=== PATIENT | male | born 1970 | race American Indian/Alaskan Native ===

== ENCOUNTER 2021-08-21 23:55 | Emergency (ER) | payer MEDICARE ==
[2021-08-22 00:24] VITALS: BP 124/79
--- NOTE | 2021-08-22 02:26 | Emergency Department Report ---
ED General Adult HPI - General Chief complaint: Chest Pain Stated complaint: CHEST PAINS Time Seen by Provider: 08/22/21 00:41 Source: patient Mode of arrival: Ambulatory Limitations: No Limitations - History of Present Illness Initial comments: Patient is 51 years old male with history of schizophrenia. Patient also reported that he has history of congestive heart failure. Patient is familiar to me and to this ER. Patient was seen here yesterday for different complaint. Patient stated that he has chest pain but he does not want explore more. P atient sleeping comfortably in no distress. Patient denied any shortness of breath. Patient denied any fever or chills. ED Review of Systems ROS: Stated complaint: CHEST PAINS Other details as noted in HPI Comment: All other systems reviewed and negative Constitutional: denies: chills, fever Respiratory: denies: cough, shortness of breath, SOB with exertion Cardiovascular: chest pain. denies: palpitations, dyspnea on exertion Gastrointestinal: denies: abdominal pain, nausea, vomiting Musculoskeletal: denies: back pain Neurological: denies: headache, weakness, numbness, paresthesias, confusion ED Past Medical Hx - Past Medical History Previous Medical History?: Yes Additional medical history: Chronic ER pt - Surgical History Past Surgical History?: No - Social History Smoking Status: Never Smoker Substance Use Type: None ED Physical Exam - General Limitations: No Limitations General appearance: alert, in no apparent distress - Head Head exam: Present: atraumatic, normocephalic, normal inspection - Eye Eye exam: Present: normal appearance - ENT ENT exam: Present: normal exam, normal orophraynx, mucous membranes moist - Neck Neck exam: Present: normal inspection, full ROM. Absent: tenderness, meningismus - Respiratory Respiratory exam: Present: normal lung sounds bilaterally - Cardiovascular Cardiovascular Exam: Present: regular rate, normal rhythm, normal heart sounds - GI/Abdominal GI/Abdominal exam: Present: soft, normal bowel sounds. Absent: distended, tenderness, guarding, rebound, rigid, organomegaly, mass, bruit, pulsatile mass, hernia - Extremities Exam Extremities exam: Present: normal inspection, full ROM, normal capillary refill. Absent: tenderness - Back Exam Back exam: Present: normal inspection, full ROM. Absent: CVA tenderness (R), CVA tenderness (L) - Neurological Exam Neurological exam: Present: alert, oriented X3, CN II-XII intact, normal gait - Psychiatric Psychiatric exam: Present: normal mood. Absent: suicidal ideation - Skin Skin exam: Present: warm, intact, normal color ED Course Vital Signs 08/22/21 00:23 Temperature 98.4 F Pulse Rate 81 Respiratory 22 Rate Blood Pressure 124/79 O2 Sat by Pulse 94 Oximetry ED Medical Decision Making - EKG Data -: EKG Interpreted by Me EKG shows normal: sinus rhythm Rate: normal - EKG Data Interpretation: no acute changes - Medical Decision Making Patient is 51 years old male with history of schizophrenia. Patient also reported that he has history of congestive heart failure. Patient is familiar to me and to this ER. Patient was seen here yesterday for different complaint. Patient stated that he has chest pain but he does not want explore more. Patient sleeping comfortably in no distress. Patient denied any shortness of breath. Patient denied any fever or chills. EKG is unremarkable. Patient remained sleeping in the ER just like what he did last night. I believe this patient symptom is most likely related to his psychiatric issue however if he is not in acute psychosis. Patient advised to follow-up with his primary care physician in the next 2 to 3 days and to return to the ER if he develop any new symptoms. Critical care attestation.: If time is entered above; I have spent that time in minutes in the direct care of this critically ill patient, excluding procedure time. ED Disposition Clinical Impression: Chest pain Disposition: HOME / SELF CARE / HOMELESS Is pt being admited?: No Condition: Stable Instructions: Nonspecific Chest Pain, Adult Referrals: PRIMARY CARE, [Primary Care Provider] - 3-5 Days
--- NOTE | 2021-08-23 10:28 | Electrocardiograph Report ---
[facility] Test Date: 2021-08-22 Test Time: 02:32:12 Pat Name: ANIVAL CHUNG Department: Room: Gender: M Civil Estimator: : 1970 Requested By: JUAREZ BERRY Order Number: [id number] Reading MD: Antelmo Lara Measurements Intervals [place]elling Rate: 54 P: 18 OK: 183 QRS: 116 QRSD: 101 T: 19 QT: 409 QTc: 387 Interpretive Statements Sinus bradycardia Low voltage, precordial leads RAD LAT. T INVERSIONS -CONSIDER ISCHEMIA No previous ECG available for comparison Electronically Signed On 08-23-2021 10:28:32 EDT by Antelmo Lara
== END 2021-08-22 03:15 | disposition home or self-care (01) ==
LOC: ED 23:55
DX: R07.9 Chest pain, unspecified (principal); F20.9 Schizophrenia, unspecified; Z88.5 Allergy status to narcotic agent
CPT/HCPCS: 36415; 84484; 93005; 99283

== ENCOUNTER 2021-08-25 08:31 | Emergency (ER) | payer MEDICARE ==
[2021-08-25 09:58] VITALS: BP 150/93
--- NOTE | 2021-08-25 10:42 | Emergency Department Report ---
ED Lower Extremity HPI - General Chief Complaint: Extremity Problem,Nontraumatic Stated Complaint: RT SIDE PAIN Time Seen by Provider: 08/25/21 10:24 Source: patient Mode of arrival: Ambulatory Limitations: No Limitations - History of Present Illness Initial Comments: Patient presents because he is having a tightness and spasm in the right lateral leg. Is been going on for months. He states that he did not tell anybody about it because he thought it would go away on its own. There is no trauma. He has no travel. No fevers or chills per there is no cough congestion. No pain associated with this. He describes this as an intermittent tightness. He just seems to come and go. - Related Data Previous Rx's Medication Instructions Recorded Last Taken Type Magnesium Oxide [Mag-Ox] 400 mg PO QDAY #20 tablet 08/25/21 Unknown Rx Allergies Allergy/AdvReac Type Severity Reaction Status Date / Time tramadol Allergy Unknown Verified 08/25/21 09:55 ziprasidone [From Geodon] Allergy Unknown Verified 08/25/21 09:55 ED Review of Systems ROS: Stated complaint: RT SIDE PAIN Other details as noted in HPI Comment: All other systems reviewed and negative Constitutional: denies: fever Eyes: denies: vision change ENT: denies: throat pain Respiratory: denies: cough Cardiovascular: denies: chest pain Endocrine: denies: unexplained weight loss Gastrointestinal: denies: abdominal pain Genitourinary: denies: dysuria Musculoskeletal: denies: back pain Skin: denies: rash Neurological: denies: numbness ED Past Medical Hx - Past Medical History Previous Medical History?: No - Surgical History Past Surgical History?: No - Family History Family history: hypertension - Social History Smoking Status: Never Smoker Substance Use Type: None - Medications Home Medications: Home Medications Medication Instructions Recorded Confirmed Last Taken Type Magnesium Oxide [Mag-Ox] 400 mg PO QDAY #20 tablet 08/25/21 Unknown Rx ED Physical Exam - General Limitations: No Limitations, Other (Pulse ox was noted and normal) General appearance: alert, in no apparent distress, obese - Head Head exam: Present: atraumatic, normocephalic - Eye Eye exam: Present: normal appearance, EOMI. Absent: scleral icterus - ENT ENT exam: Present: normal exam, normal orophraynx - Neck Neck exam: Present: normal inspection. Absent: meningismus - Respiratory Respiratory exam: Present: normal lung sounds bilaterally. Absent: respiratory distress - Cardiovascular Cardiovascular Exam: Present: regular rate, normal rhythm - GI/Abdominal GI/Abdominal exam: Present: soft. Absent: tenderness - Extremities Exam Extremities exam: Present: normal capillary refill, other (No spasm noted). Absent: tenderness, pedal edema, calf tenderness - Back Exam Back exam: Present: full ROM - Neurological Exam Neurological exam: Present: alert, oriented X3, CN II-XII intact, normal gait. Absent: motor sensory deficit - Psychiatric Psychiatric exam: Present: normal affect, normal mood - Skin Skin exam: Present: warm, dry ED Course Vital Signs 08/25/21 09:56 Temperature 97.5 F L Pulse Rate 62 Respiratory 16 Rate Blood Pressure 150/93 [Left] O2 Sat by Pulse 100 Oximetry - Reevaluation(s) Reevaluation #1: 08/25/21 11:47 Patient was seen as above and discharged. ED Lower Extremity MDM - Medical Decision Making Patient presents with a prolonged and chronic history of leg spasms. He finally decided it was bad enough to come here. There is no evidence of trauma. He has no calf tenderness to suggest DVT. He has no erythema to suggest infection. He was discharged. Critical care attestation.: If time is entered above; I have spent that time in minutes in the direct care of this critically ill patient, excluding procedure time. ED Disposition Clinical Impression: Muscle spasm Disposition: 01 HOME / SELF CARE / HOMELESS Is pt being admited?: No Condition: Stable Instructions: Muscle Cramps and Spasms, Leg Cramps Additional Instructions: Use ice or heat. Return for problems. Prescriptions: Magnesium Oxide [Mag-Ox] 400 mg PO QDAY #20 tablet Referrals: PRIMARY CARE, [Primary Care Provider] - 3-5 Days
== END 2021-08-25 11:05 | disposition home or self-care (01) ==
LOC: ED 08:31
DX: M62.831 Muscle spasm of calf (principal); Z88.5 Allergy status to narcotic agent; Z88.8 Allergy status to other drugs, medicaments and biological substances
CPT/HCPCS: 99282

== ENCOUNTER 2021-08-28 01:57 | Emergency (ER) | payer MEDICARE ==
[2021-08-28 02:09] VITALS: BP 142/102
--- NOTE | 2021-08-28 03:24 | Emergency Department Report ---
Chief Complaint: Extremity Injury, Lower Stated Complaint: BILATERAL LEG PAIN Time Seen by Provider: 08/28/21 02:43 - HPI History of Present Illness: 51-year-old male patient presents to the emergency department with complaints of bilateral leg pain "for awhile." This is patient's seventh visit to the emergency department in the last 30 days. He has been discharged each time following medical screening examination and/or negative work-up. Patient has no new complaints today. - ROS Review of Systems: GENERAL: Negative for fever. CARDIOVASCULAR: Negative for chest pain. PULMONARY: Negative for shortness of breath. GASTROINTESTINAL: Negative for abdominal pain. MUSCULOSKELETAL: Positive for bilateral leg pain. NEUROLOGICAL: Negative for headache. INTEGUMENTARY: Negative for rash. - Exam Vital Signs: Vital Signs 08/28/21 02:08 Temperature 98.0 F Pulse Rate 98 H Respiratory 16 Rate Blood Pressure 142/102 [Right] O2 Sat by Pulse 98 Oximetry Physical Exam: General: Sleeping soundly, no distress. Neck: Supple. Full range of motion intact. Cardiovascular: Normal peripheral perfusion. Pulmonary: No respiratory distress. Patient is speaking normally without use of accessory muscles. Skin: No apparent rashes or lesions. Neurological: No facial asymmetry. Speech is clear. Follows commands. Patient is alert and oriented. Musculoskeletal: Bilateral non-pitting lower extremity edema, symmetrical, no calf tenderness, no pulse deficit, ambulatory without assistance, distal neurovascular and motor/sensory function intact. Psych: Cooperative. Appropriate mood and affect. MSE screening note: Focused history and physical exam performed. Due to findings the following was ordered: ED Medical Decision Making - Medical Decision Making Patient who is very well-known to this emergency department presents with complaints of bilateral leg pain "for awhile," unchanged today. Evaluated multiple times in the last 30 days. He is afebrile, hemodynamically stable, no distress. He is sleeping soundly upon entering the examination area. Multiple attempts required to arouse the patient from his sleep. Patient fell asleep repeatedly while attempting to answer questions. There is no tenderness on exam. There is no neurovascular deficit. No clinical evidence to suggest arterial occlusion, deep vein thrombosis, infectious process, acute congestive heart failure, or any other emergent medical condition warranting repeat diagnostic work-up. Discharged home to follow-up with primary care provider. BILLING/CODING: This patient encounter does not represent a certified medical emergency. ED Disposition for MSE Clinical Impression: Encounter for medical screening examination Disposition: 01 HOME / SELF CARE / HOMELESS Is pt being admited?: No Does the pt Need Aspirin: No Condition: Stable Instructions: Medical Screening Exam Additional Instructions: Follow-up with your primary care provider. Return to the emergency department immediately for new or worsening symptoms. Referrals: ABENA SARAVIA MD [Staff Physician] - 3-5 Days [facility] [Provider Group] - 3-5 Days Time of Disposition: 03:24
== END 2021-08-28 06:36 | disposition home or self-care (01) ==
LOC: ED 01:57
DX: M79.605 Pain in left leg (principal); M79.604 Pain in right leg; Z00.00 Encounter for general adult medical examination without abnormal findings
CPT/HCPCS: 99283

== ENCOUNTER 2021-08-31 14:34 | Emergency (ER) | payer MEDICARE ==
[2021-08-31 15:33] VITALS: BP 113/72
--- NOTE | 2021-08-31 17:32 | Emergency Department Report ---
ED General Adult HPI - General Chief complaint: Headache Stated complaint: HEADACHE Time Seen by Provider: 08/31/21 16:32 Source: patient Mode of arrival: Ambulatory Limitations: No Limitations - History of Present Illness Initial comments: Patient presents to the emergency department with a chief complaint of a headache. I presented to the patient's room multiple times without the patient being present. Finally on the third attempt the patient was present in the room. Complains of a headache and states she has a history of migraines and this headache is not the worst headache of his life it was very difficult to keep the patient on task with obtaining the history. The patient was very fixated on events that happened to him on prior visits to this hospital where he states he was eventually arrested and spent 2 weeks in half-way. Patient denies chest pain, shortness breath, or abdominal pain. He does complain of skin irritation due to shaving. -: week(s) Location: head Severity scale (0 -10): 4 Quality: aching Consistency: constant Improves with: none Worsens with: none Associated Symptoms: denies other symptoms Treatments Prior to Arrival: none - Related Data Previous Rx's Medication Instructions Recorded Last Taken Type Magnesium Oxide [Mag-Ox] 400 mg PO QDAY #20 tablet 08/25/21 Unknown Rx Butalb/Acetamin/Caff 50-325-40 1 tab PO Q6HR PRN #24 tab 08/31/21 Unknown Rx [Fioricet] Hydrocortisone [Hydrocortisone 20 gm TP BID #1 oint...g. 08/31/21 Unknown Rx 2.5% OINT] Allergies Allergy/AdvReac Type Severity Reaction Status Date / Time tramadol Allergy Unknown Verified 08/28/21 02:07 ziprasidone [From Geodon] Allergy Unknown Verified 08/28/21 02:07 ED Review of Systems ROS: Stated complaint: HEADACHE Other details as noted in HPI Constitutional: denies: chills, fever Eyes: denies: eye pain, eye discharge, vision change ENT: denies: ear pain, throat pain Respiratory: denies: cough, shortness of breath, wheezing Cardiovascular: denies: chest pain, palpitations Endocrine: no symptoms reported Gastrointestinal: denies: abdominal pain, nausea, diarrhea Genitourinary: denies: urgency, dysuria Musculoskeletal: denies: back pain, joint swelling, arthralgia Skin: denies: rash, lesions Neurological: headache. denies: weakness, paresthesias Psychiatric: denies: anxiety, depression Hematological/Lymphatic: denies: easy bleeding, easy bruising ED Past Medical Hx - Past Medical History Hx Psychiatric Treatment: Yes (bi-polar) Additional medical history: Chronic ER pt - Social History Smoking Status: Never Smoker Substance Use Type: None - Medications Home Medications: Home Medications Medication Instructions Recorded Confirmed Last Taken Type Magnesium Oxide [Mag-Ox] 400 mg PO QDAY #20 tablet 08/25/21 Unknown Rx Butalb/Acetamin/Caff 50-325-40 1 tab PO Q6HR PRN #24 tab 08/31/21 Unknown Rx [Fioricet] Hydrocortisone [Hydrocortisone 20 gm TP BID #1 oint...g. 08/31/21 Unknown Rx 2.5% OINT] ED Physical Exam - General Limitations: No Limitations General appearance: alert, in no apparent distress - Head Head exam: Present: atraumatic, normocephalic - Eye Eye exam: Present: normal appearance, PERRL, EOMI - ENT ENT exam: Present: mucous membranes moist, other (There is about irritation of the skin underneath the mandible likely secondary to shaving) - Neck Neck exam: Present: normal inspection - Respiratory Respiratory exam: Present: normal lung sounds bilaterally. Absent: respiratory distress - Cardiovascular Cardiovascular Exam: Present: regular rate, normal rhythm. Absent: systolic murmur, diastolic murmur, rubs, gallop - GI/Abdominal GI/Abdominal exam: Present: soft, normal bowel sounds - Rectal Rectal exam: Present: deferred - Extremities Exam Extremities exam: Present: other (Valgus deformity of the legs) - Back Exam Back exam: Present: normal inspection - Neurological Exam Neurological exam: Present: alert, oriented X3 - Psychiatric Psychiatric exam: Present: normal affect, normal mood - Skin Skin exam: Present: warm, dry, intact, normal color. Absent: rash ED Course Vital Signs 08/31/21 15:33 Temperature 98.0 F Pulse Rate 69 Respiratory 16 Rate Blood Pressure 113/72 [Right] O2 Sat by Pulse 99 Oximetry ED Medical Decision Making - Medical Decision Making Patient politely declined imaging Critical care attestation.: If time is entered above; I have spent that time in minutes in the direct care of this critically ill patient, excluding procedure time. ED Disposition Clinical Impression: Headache, Skin irritation from shaving Disposition: HOME / SELF CARE / HOMELESS Is pt being admited?: No Does the pt Need Aspirin: No Condition: Stable Instructions: General Headache Without Cause Additional Instructions: return if worse Prescriptions: Butalb/Acetamin/Caff 50-325-40 [Fioricet] 1 tab PO Q6HR PRN #24 tab PRN Reason: Headache Hydrocortisone [Hydrocortisone 2.5% OINT] 20 gm TP BID #1 oint...g. Referrals: PRIMARY MD TREVON [Primary Care Provider] - 3-5 Days ABENA SARAVIA MD [Staff Physician] - 3-5 Days Time of Disposition: 17:29
== END 2021-08-31 17:56 | disposition home or self-care (01) ==
LOC: ED 14:34
DX: G43.909 Migraine, unspecified, not intractable, without status migrainosus (principal); R21 Rash and other nonspecific skin eruption; F31.9 Bipolar disorder, unspecified; Z88.8 Allergy status to other drugs, medicaments and biological substances
CPT/HCPCS: 99281

== ENCOUNTER 2021-09-17 08:30 | Emergency (ER) | payer MEDICARE ==
--- NOTE | 2021-09-17 08:53 | Emergency Department Report ---
ED Extremity Problem HPI - General Chief complaint: Extremity Injury, Lower Stated complaint: LFT, AND RGHT KNEE PAIN Time Seen by Provider: 09/17/21 08:47 Source: patient Mode of arrival: Ambulatory Limitations: Other - History of Present Illness Initial comments: The patient was evaluated in the emergency department for symptoms described in the history of present illness. He/she was evaluated in the context of the global COVID-19 pandemic, which necessitated consideration that the patient might be at risk for infection with the virus that causes COVID-19. Institutional protocols and algorithms that pertain to the evaluation of patients at risk for COVID-19 are in a state of rapid change based on information released by regulatory bodies including the CDC and federal and state organizations. These policies and algorithms were followed during the patient's care in the emergency department. Please note that these policies, procedures and recommendations changed on a rapid basis. 51-year-old -[place] male with a past medical history of mental health issues chronic pain chronic knee pain presents to the emergency room complaining of knee aching. Patient has not had any recent injuries. Has not taken anything for pain. Able to ambulate to the exam room. Coming in asking for peanut butter sandwich. MD Complaint: extremity pain Onset/Timin -: month(s) Location: left, right, knee History of Same: Yes -: Yes arthralgia Severity scale (0 -10): 5 Consistency: constant Improves with: nothing Worsens with: walking Associated Symptoms: denies other symptoms - Related Data Previous Rx's Medication Instructions Recorded Last Taken Type Magnesium Oxide [Mag-Ox] 400 mg PO QDAY #20 tablet 08/25/21 Unknown Rx Butalb/Acetamin/Caff 50-325-40 1 tab PO Q6HR PRN #24 tab 08/31/21 Unknown Rx [Fioricet] Hydrocortisone [Hydrocortisone 20 gm TP BID #1 oint...g. 08/31/21 Unknown Rx 2.5% OINT] Allergies Allergy/AdvReac Type Severity Reaction Status Date / Time tramadol Allergy Unknown Verified 08/28/21 02:07 ziprasidone [From Geodon] Allergy Unknown Verified 08/28/21 02:07 ED Review of Systems ROS: Stated complaint: LFT, AND RGHT KNEE PAIN Other details as noted in HPI Comment: All other systems reviewed and negative ED Past Medical Hx - Past Medical History Hx Psychiatric Treatment: Yes (bi-polar) Additional medical history: Chronic ER pt - Social History Smoking Status: Never Smoker Substance Use Type: None - Medications Home Medications: Home Medications Medication Instructions Recorded Confirmed Last Taken Type Magnesium Oxide [Mag-Ox] 400 mg PO QDAY #20 tablet 08/25/21 Unknown Rx Butalb/Acetamin/Caff 50-325-40 1 tab PO Q6HR PRN #24 tab 08/31/21 Unknown Rx [Fioricet] Hydrocortisone [Hydrocortisone 20 gm TP BID #1 oint...g. 08/31/21 Unknown Rx 2.5% OINT] ED Physical Exam - General Limitations: Other General appearance: alert, in no apparent distress - Head Head exam: Present: atraumatic, normocephalic - Eye Eye exam: Present: normal appearance - ENT ENT exam: Present: mucous membranes moist - Neck Neck exam: Present: normal inspection, full ROM - Respiratory Respiratory exam: Absent: respiratory distress, accessory muscle use - Cardiovascular Cardiovascular Exam: Present: regular rate, normal rhythm. Absent: systolic murmur, diastolic murmur, rubs, gallop - GI/Abdominal GI/Abdominal exam: Present: soft, normal bowel sounds - Rectal Rectal exam: Present: deferred - Extremities Exam Extremities exam: Present: normal inspection, full ROM, other (Bilateral knee crepitus). Absent: pedal edema, joint swelling, calf tenderness - Back Exam Back exam: Present: normal inspection, full ROM - Neurological Exam Neurological exam: Present: alert, oriented X3 - Psychiatric Psychiatric exam: Present: normal affect, normal mood - Skin Skin exam: Present: warm, dry, intact, normal color. Absent: rash ED Medical Decision Making - Medical Decision Making 51-year-old -[place] male with a past medical history of mental health issues chronic pain chronic knee pain presents to the emergency room complaining of knee aching. Patient has not had any recent injuries. Has not taken anything for pain. Able to ambulate to the exam room. Coming in asking for peanut butter sandwich. Patient can take Tylenol or ibuprofen for pain management. All vitals are stable. Critical care attestation.: If time is entered above; I have spent that time in minutes in the direct care of this critically ill patient, excluding procedure time. ED Disposition Clinical Impression: Chronic pain of both knees Disposition: HOME / SELF CARE / HOMELESS Is pt being admited?: No Does the pt Need Aspirin: No Condition: Stable Instructions: Chronic Knee Pain, Adult, [id number] Additional Instructions: Take pain medication as needed follow-up with an orthopedic provider. Referrals: GOMEZ OSBORNE MD [Staff Physician] - 3-5 Days Time of Disposition: 08:56
[2021-09-17 09:08] VITALS: BP 119/83
== END 2021-09-17 09:14 | disposition home or self-care (01) ==
LOC: ED 08:30
DX: M25.562 Pain in left knee (principal); M25.561 Pain in right knee; G89.29 Other chronic pain; F31.9 Bipolar disorder, unspecified; Z88.5 Allergy status to narcotic agent; Z88.8 Allergy status to other drugs, medicaments and biological substances
CPT/HCPCS: 99281

== ENCOUNTER 2021-09-29 00:43 | Emergency (ER) | payer MEDICARE ==
[2021-09-29 03:43] LABS: Bilirubin,Urine NEG (Negative); Blood,Urine NEG (Negative); Color,Urine Yellow (Yellow); Protein,Urine <15 mg/dL mg/dL (Negative); RBC,Urine < 1.0 /HPF (0.0-6.0); Urobilinogen,Urine < 2.0 mg/dL (<2.0); WBC,Urine < 1.0 /HPF (0.0-6.0)
[2021-09-29 03:44] LABS: Basophils # (Auto) 0.1 K/mm3 (0.0-0.1); Basophils % (Auto) 1.1 % (0.0-1.8); Eosinophils # (Auto) 0.1 K/mm3 (0.0-0.4); Eosinophils % (Auto) 1.6 % (0.0-4.3); Hematocrit 41.4 % (35.5-45.6); Hemoglobin 12.9 gm/dl (11.8-15.2); Lymphocytes # (Auto) 2.6 K/mm3 (1.2-5.4); Lymphocytes % (Auto) 47.3 % (13.4-35.0); Mean Corpuscular HGB Conc 31 % (32-34); Mean Corpuscular Volume 73 fl (84-94); Monocytes # (Auto) 0.5 K/mm3 (0.0-0.8); Monocytes % (Auto) 9.7 % (0.0-7.3); Platelet Count 171 K/mm3 (140-440); Red Blood Count 5.64 M/mm3 (3.65-5.03); Red Cell Distribution Width 15.7 % (13.2-15.2)
[2021-09-29 03:51] LABS: Amphetamine Screen,Urine Negative; Benzodiazepines Screen,Urine Negative; Cannabinoid Screen,Urine Negative; Cocaine Screen,Urine Negative; Methadone Screen,Urine Negative; Opiate Screen,Urine Negative
[2021-09-29 04:03] LABS: BUN/Creatinine Ratio 33; Blood Urea Nitrogen 23 mg/dL (9-20); Calcium 9.6 mg/dL (8.4-10.2); Hemolysis Index 12
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
[2021-09-29] MEDS: ARIPiprazole 10 MG TAB PO SCH (11:21)
[2021-09-29] MEDS: DIVALPROEX DR 250 MG TAB PO SCH ×2 (11:21→21:42)
[2021-09-29] MEDS ORDERED: traZODone 50 MG TAB PO SCH (22:00)
[2021-09-30] MEDS ORDERED: diphenhydrAMINE 50 MG/ML VIAL IM ONE (02:28)
[2021-09-30] MEDS ORDERED: HALOPERIDOL LACTATE 5 MG/1 ML INJ IM ONE ×2 (02:28→10:32)
[2021-09-30] MEDS: DIVALPROEX DR 250 MG TAB PO SCH (09:54)
[2021-09-30] MEDS: ARIPiprazole 10 MG TAB PO SCH (09:54)
[2021-09-30 10:20] VITALS: BP 153/66
[2021-09-30] MEDS ORDERED: LORazepam 2 MG/ML VIAL IM ONE (11:39)
--- NOTE | 2021-09-30 11:56 | Emergency Department Report ---
Blank Doc - Documentation Documentation: This patient presented yesterday for a psychiatric evaluation. He was seen by the psychiatric nurse practitioner, under Dr. Mares, and it was decided that the patient is a candidate to be made a 1013 secondary to auditory and visual hallucinations, and acute psychosis with loose associations, rambling tangential thoughts, responding to internal stimuli. The patient was accepted to [facility] and [facility] has arrived to take the patient, however the patient is refusing to go to [facility]. The patient received Geodon about 1 hour ago. I have ordered for the patient to have some Ativan, but now the patient is agitated saying that he has received 4 injections in a short amount of time, which is actually over 10 hours with Geodon and Benadryl being given around 2 AM, Geodon given at 10 PM, and an order for Ativan that has not yet been given. The patient is trying to argue that he is not a 1013 candidate and that he should just be discharged as he is not violent, suicidal or homicidal. However, due to his psychosis the patient is unable to understand that he is exhibiting acute psychosis. The patient continues to have rambling tangential thoughts and loose associations. We will continue to try and get the patient to go with the transport service to [facility], but the [facility]'s department has been contacted to assist with transport if necessary.
== END 2021-09-30 13:07 ==
LOC: ED 00:43 → EEVIPCON 00:43 → ED 09-30 13:07
DX: F31.9 Bipolar disorder, unspecified (principal); Z13.30 Encounter for screening examination for mental health and behavioral disorders, unspecified; R44.0 Auditory hallucinations; Z20.822 Contact with and (suspected) exposure to COVID-19
CPT/HCPCS: 36415; 80048; 80164; 80307; 81001; 85025; 96372; 99285; J1200; J1630; J2060; U0003; 80320; G0480

== ENCOUNTER 2021-10-16 23:09 | Emergency (ER) | payer MEDICARE ==
[2021-10-17 00:13] VITALS: BP 129/70
[2021-10-17] MEDS ORDERED: HYDROcodone/ACETAMINOPHEN 5-325 MG TAB PO ONE (00:19)
[2021-10-17] MEDS ORDERED: GABAPENTIN 300 MG CAP PO ONE (00:36)
--- NOTE | 2021-10-17 00:41 | Emergency Department Report ---
ED General Adult HPI - General Chief complaint: Extremity Problem,Nontraumatic Stated complaint: GENERAL ILLNESS Time Seen by Provider: 10/17/21 00:16 Source: patient Mode of arrival: Ambulatory Limitations: No Limitations - History of Present Illness Initial comments: Chief complaint: Bilateral simon pain HPI: This 51-year-old male with history of bipolar disorder [id number] diabetes who presents with bilateral lower extremity pain in simon and feet. Denies fever. Denies trauma. Denies suicidal homicidal ideation. He is calm. Directable. Cooperative. Polite. -: Gradual, week(s) (Several weeks) Location: left, right, lower extremity Consistency: constant Improves with: none Worsens with: none Associated Symptoms: denies other symptoms - Related Data Previous Rx's Medication Instructions Recorded Last Taken Type Magnesium Oxide [Mag-Ox] 400 mg PO QDAY #20 tablet 08/25/21 Unknown Rx Butalb/Acetamin/Caff 50-325-40 1 tab PO Q6HR PRN #24 tab 08/31/21 Unknown Rx [Fioricet] Hydrocortisone [Hydrocortisone 20 gm TP BID #1 oint...g. 08/31/21 Unknown Rx 2.5% OINT] Gabapentin 300 mg PO TID #21 capsule 10/17/21 Unknown Rx Allergies Allergy/AdvReac Type Severity Reaction Status Date / Time tramadol Allergy Unknown Verified 08/28/21 02:07 ziprasidone [From Geodon] Allergy Unknown Verified 08/28/21 02:07 ED Review of Systems ROS: Stated complaint: GENERAL ILLNESS Other details as noted in HPI Comment: All other systems reviewed and negative Constitutional: denies: fever, malaise Gastrointestinal: denies: abdominal pain, nausea, vomiting Psychiatric: denies: homicidal thoughts, suicidal thoughts ED Past Medical Hx - Past Medical History Previous Medical History?: Yes Hx Diabetes: Yes Hx Psychiatric Treatment: Yes (bi-polar) - Social History Smoking Status: Never Smoker Substance Use Type: None - Medications Home Medications: Home Medications Medication Instructions Recorded Confirmed Last Taken Type Magnesium Oxide [Mag-Ox] 400 mg PO QDAY #20 tablet 08/25/21 Unknown Rx Butalb/Acetamin/Caff 50-325-40 1 tab PO Q6HR PRN #24 tab 08/31/21 Unknown Rx [Fioricet] Hydrocortisone [Hydrocortisone 20 gm TP BID #1 oint...g. 08/31/21 Unknown Rx 2.5% OINT] Gabapentin 300 mg PO TID #21 capsule 10/17/21 Unknown Rx ED Physical Exam - General Limitations: No Limitations General appearance: alert, in no apparent distress - Head Head exam: Present: atraumatic, normocephalic - Eye Eye exam: Present: normal appearance - ENT ENT exam: Present: mucous membranes moist - Neck Neck exam: Present: normal inspection, full ROM - Respiratory Respiratory exam: Present: normal lung sounds bilaterally. Absent: respiratory distress, wheezes, rales, rhonchi, stridor - Cardiovascular Cardiovascular Exam: Present: regular rate, normal rhythm, normal heart sounds. Absent: systolic murmur, diastolic murmur, rubs, gallop - GI/Abdominal GI/Abdominal exam: Present: soft, normal bowel sounds. Absent: distended, tenderness, guarding, rebound - Rectal Rectal exam: Present: deferred - Extremities Exam Extremities exam: Present: pedal edema - Neurological Exam Neurological exam: Present: alert, oriented X3 - Psychiatric Psychiatric exam: Present: normal affect, normal mood - Skin Skin exam: Present: warm, dry, intact, normal color. Absent: rash ED Course Vital Signs 10/17/21 00:05 Temperature 98.1 F Pulse Rate 85 Respiratory 16 Rate Blood Pressure 129/70 [Right] O2 Sat by Pulse 94 Oximetry ED Medical Decision Making - Medical Decision Making Bilateral lower extremity pain: No history of trauma: Differential diagnosis includes neuropathy, muscle sprain: Patient prescribed gabapentin. Given [place] and gabapentin emergency department. Referred to outpatient medicine physician. No indication of DVT or acute peripheral vascular occlusion Critical care attestation.: If time is entered above; I have spent that time in minutes in the direct care of this critically ill patient, excluding procedure time. ED Disposition Clinical Impression: Bilateral lower extremity pain Disposition: HOME / SELF CARE / HOMELESS Is pt being admited?: No Does the pt Need Aspirin: No Condition: Stable Prescriptions: Gabapentin 300 mg PO TID #21 capsule Referrals: ABENA SARAVIA MD [Staff Physician] - 3-5 Days
[2021-10-20] MEDS ORDERED: ACETAMINOPHEN 500 MG TAB PO STA (15:36)
[2021-10-20] MEDS ORDERED: IBUPROFEN 800 MG TAB PO STA (15:36)
== END 2021-10-17 02:06 | disposition home or self-care (01) ==
LOC: ED 23:09
DX: M79.604 Pain in right leg (principal); M79.605 Pain in left leg; E11.9 Type 2 diabetes mellitus without complications; F31.9 Bipolar disorder, unspecified; Z88.5 Allergy status to narcotic agent; Z88.8 Allergy status to other drugs, medicaments and biological substances
CPT/HCPCS: 99282

== ENCOUNTER 2021-10-21 23:50 | Emergency (ER) | payer MEDICARE | END 2021-10-22 01:20 | disposition left against medical advice (07) | LOC: ED 23:50 | DX: Z53.21 Procedure and treatment not carried out due to patient leaving prior to being seen by health care provider (principal) ==

== ENCOUNTER 2021-11-19 23:27 | Emergency (ER) | payer MEDICARE ==
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
== END 2021-11-20 01:00 ==
LOC: ED 23:27
DX: S09.90XA Unspecified injury of head, initial encounter (principal); F31.9 Bipolar disorder, unspecified; Z88.5 Allergy status to narcotic agent; Z88.8 Allergy status to other drugs, medicaments and biological substances; X58.XXXA Exposure to other specified factors, initial encounter; Y93.89 Activity, other specified; Y92.89 Other specified places as the place of occurrence of the external cause; Y99.8 Other external cause status
CPT/HCPCS: 99282

== ENCOUNTER 2021-12-30 05:54 | Emergency (ER) | payer MEDICARE ==
[2021-12-30 06:10] VITALS: BP 130/80
--- NOTE | 2021-12-30 08:01 | Emergency Department Report ---
ED Extremity Problem HPI - General Chief complaint: Extremity Injury, Lower Stated complaint: LEG PAIN Time Seen by Provider: 12/30/21 07:48 Source: patient Mode of arrival: Ambulatory Limitations: No Limitations - History of Present Illness Initial comments: 51-year-old -[place] male who is well-known to this provider presents to the emergency room for chronic leg pain in both legs. Patient is currently on gabapentin. Patient is taking no other pain medication. He does have a past medical history of bipolar. He has a primary care provider Dr. Mccray that he has not followed up. He denies any recent injuries denies any swelling no chest pain no shortness of breath. MD Complaint: extremity pain Onset/Timin -: year(s) Location: bilateral lower extremity History of Same: Yes -: Yes myalgia, Yes arthralgia Severity scale (0 -10): 8 Quality: burning, aching Consistency: intermittent Improves with: nothing Worsens with: weight bearing Associated Symptoms: denies other symptoms - Related Data Previous Rx's Medication Instructions Recorded Last Taken Type Magnesium Oxide [Mag-Ox] 400 mg PO QDAY #20 tablet 08/25/21 Unknown Rx Butalb/Acetamin/Caff 50-325-40 1 tab PO Q6HR PRN #24 tab 08/31/21 Unknown Rx [Fioricet] Hydrocortisone [Hydrocortisone 20 gm TP BID #1 oint...g. 08/31/21 Unknown Rx 2.5% OINT] Gabapentin 300 mg PO TID #21 capsule 10/17/21 Unknown Rx Allergies Allergy/AdvReac Type Severity Reaction Status Date / Time tramadol Allergy Unknown Verified 08/28/21 02:07 ziprasidone [From Geodon] Allergy Unknown Verified 08/28/21 02:07 ED Review of Systems ROS: Stated complaint: LEG PAIN Other details as noted in HPI Comment: All other systems reviewed and negative ED Past Medical Hx - Past Medical History Previous Medical History?: Yes Hx Diabetes: Yes Hx Psychiatric Treatment: Yes (bi-polar) Additional medical history: Chronic ER pt - Surgical History Past Surgical History?: No - Social History Smoking Status: Never Smoker Substance Use Type: None - Medications Home Medications: Home Medications Medication Instructions Recorded Confirmed Last Taken Type Magnesium Oxide [Mag-Ox] 400 mg PO QDAY #20 tablet 08/25/21 Unknown Rx Butalb/Acetamin/Caff 50-325-40 1 tab PO Q6HR PRN #24 tab 08/31/21 Unknown Rx [Fioricet] Hydrocortisone [Hydrocortisone 20 gm TP BID #1 oint...g. 08/31/21 Unknown Rx 2.5% OINT] Gabapentin 300 mg PO TID #21 capsule 10/17/21 Unknown Rx ED Physical Exam - General Limitations: No Limitations General appearance: alert, in no apparent distress - Head Head exam: Present: atraumatic, normocephalic - Eye Eye exam: Present: normal appearance - ENT ENT exam: Present: mucous membranes moist - Neck Neck exam: Present: normal inspection - Respiratory Respiratory exam: Present: normal lung sounds bilaterally. Absent: respiratory distress - Cardiovascular Cardiovascular Exam: Present: regular rate, normal rhythm. Absent: systolic murmur, diastolic murmur, rubs, gallop - GI/Abdominal GI/Abdominal exam: Present: soft, normal bowel sounds - Rectal Rectal exam: Present: deferred - Extremities Exam Extremities exam: Present: normal inspection, full ROM. Absent: tenderness, pedal edema, joint swelling, calf tenderness - Back Exam Back exam: Present: normal inspection - Neurological Exam Neurological exam: Present: alert, oriented X3, normal gait - Psychiatric Psychiatric exam: Present: normal affect, normal mood. Absent: homicidal ideati on, suicidal ideation - Expanded Psychiatric Exam Expanded Focused psych exam: Present: flight of ideas - Skin Skin exam: Present: warm, dry, intact, normal color. Absent: rash ED Course Vital Signs 12/30/21 06:09 Temperature 98 F Pulse Rate 100 H Respiratory 18 Rate Blood Pressure 130/80 [Right] O2 Sat by Pulse 98 Oximetry ED Medical Decision Making - Medical Decision Making 51-year-old -[place] male who is well-known to this provider presents to the emergency room for chronic leg pain in both legs. Patient is currently on gabapentin. Patient is taking no other pain medication. He does have a past medical history of bipolar. He has a primary care provider Dr. Mccray that he has not followed up. He denies any recent injuries denies any swelling no chest pain no shortness of breath. Discussed with patient to continue with his gabapentin and try [id number] Tylenol ibuprofen. Discussed the patient is to follow-up with his primary care provider as this complaint is chronic and patient comes here often for the same complaint. Critical care attestation.: If time is entered above; I have spent that time in minutes in the direct care of this critically ill patient, excluding procedure time. ED Disposition Clinical Impression: Chronic pain of lower extremity, bilateral Disposition: 01 HOME / SELF CARE / HOMELESS Is pt being admited?: No Does the pt Need Aspirin: No Condition: Stable Instructions: Chronic Pain, Adult Additional Instructions: Please take [id number] Tylenol ibuprofen for pain management. Continue with your gabapentin. Is very important you follow-up with your primary care provider and orthopedic provider. Referrals: DIANNA MCCRAY JR, MD [Staff Physician] - 3-5 Days GOMEZ OSBORNE MD [Staff Physician] - 3-5 Days CHRIS LION MD [Staff Physician] - 3-5 Days Time of Disposition: 08:01
== END 2021-12-30 08:20 | disposition home or self-care (01) ==
LOC: ED 05:54
DX: M79.661 Pain in right lower leg (principal); M79.662 Pain in left lower leg; G89.29 Other chronic pain; E11.9 Type 2 diabetes mellitus without complications; Z88.6 Allergy status to analgesic agent; Z88.8 Allergy status to other drugs, medicaments and biological substances; Z79.899 Other long term (current) drug therapy
CPT/HCPCS: 99283

== ENCOUNTER 2022-01-07 02:07 | Emergency (ER) | payer MEDICARE ==
[2022-01-07 04:04] VITALS: BP 135/88
--- NOTE | 2022-01-07 06:17 | Emergency Department Report ---
ED General Adult HPI - General Chief complaint: Extremity Injury, Lower Stated complaint: SORE MOUTH, BILATERAL KNEE PAIN Time Seen by Provider: 01/07/22 06:01 Source: patient Mode of arrival: Ambulatory Limitations: No Limitations - History of Present Illness Initial comments: 51-year-old male who is well-known to this provider presents to the emergency room complaining of bilateral lower leg pain. This has been chronic in nature. He also complains of a sore to the right lateral side of his tongue. Patient states he has not eaten anything bad. He complains that his legs color is different. Patient suffers from peripheral neuropathy and is currently on gabapentin. Patient does have a primary care provider Dr. Dianna Mccray but has not seen him in a while. Patient denies any new trauma no shortness of breath no chest pain no nausea no vomiting. Patient is on the phone talking to his [id number] always trying to conduct an interview. -: year(s) Location: lower extremity Severity scale (0 -10): 3 Quality: aching Consistency: constant Improves with: rest Associated Symptoms: denies other symptoms - Related Data Previous Rx's Medication Instructions Recorded Last Taken Type Magnesium Oxide [Mag-Ox] 400 mg PO QDAY #20 tablet 08/25/21 Unknown Rx Butalb/Acetamin/Caff 50-325-40 1 tab PO Q6HR PRN #24 tab 08/31/21 Unknown Rx [Fioricet] Hydrocortisone [Hydrocortisone 20 gm TP BID #1 oint...g. 08/31/21 Unknown Rx 2.5% OINT] Gabapentin 300 mg PO TID #21 capsule 10/17/21 Unknown Rx Allergies Allergy/AdvReac Type Severity Reaction Status Date / Time tramadol Allergy Unknown Verified 08/28/21 02:07 ziprasidone [From Geodon] Allergy Unknown Verified 08/28/21 02:07 ED Review of Systems ROS: Stated complaint: SORE MOUTH, BILATERAL KNEE PAIN Other details as noted in HPI Comment: All other systems reviewed and negative ED Past Medical Hx - Past Medical History Previous Medical History?: Yes Hx Diabetes: Yes Hx Psychiatric Treatment: Yes (bi-polar) Additional medical history: Chronic Knee pain - Surgical History Past Surgical History?: No - Social History Smoking Status: Never Smoker Substance Use Type: None - Medications Home Medications: Home Medications Medication Instructions Recorded Confirmed Last Taken Type Magnesium Oxide [Mag-Ox] 400 mg PO QDAY #20 tablet 08/25/21 Unknown Rx Butalb/Acetamin/Caff 50-325-40 1 tab PO Q6HR PRN #24 tab 08/31/21 Unknown Rx [Fioricet] Hydrocortisone [Hydrocortisone 20 gm TP BID #1 oint...g. 08/31/21 Unknown Rx 2.5% OINT] Gabapentin 300 mg PO TID #21 capsule 10/17/21 Unknown Rx ED Physical Exam - General Limitations: No Limitations General appearance: alert, in no apparent distress - Head Head exam: Present: atraumatic, normocephalic - Eye Eye exam: Present: normal appearance - ENT ENT exam: Present: mucous membranes moist, other (Right lateral lesion to his tongue that appears to be red no concerns for cancer) - Neck Neck exam: Present: normal inspection - Respiratory Respiratory exam: Absent: respiratory distress, accessory muscle use - Cardiovascular Cardiovascular Exam: Present: regular rate. Absent: systolic murmur, diastolic murmur, rubs, gallop - GI/Abdominal GI/Abdominal exam: Present: soft, normal bowel sounds - Rectal Rectal exam: Present: deferred - Extremities Exam Extremities exam: Present: normal inspection, full ROM, pedal edema, other (Legs are shiny no hair appreciated). Absent: calf tenderness - Back Exam Back exam: Present: normal inspection - Neurological Exam Neurological exam: Present: alert, oriented X3, normal gait - Psychiatric Psychiatric exam: Present: normal affect, normal mood - Skin Skin exam: Present: warm, dry, intact, normal color. Absent: rash ED Course Vital Signs 01/07/22 01/07/22 02:15 03:54 Temperature 98 F 98.0 F Pulse Rate 74 83 Respiratory 18 18 Rate Blood Pressure 150/90 Blood Pressure 135/88 [Right] O2 Sat by Pulse 100 97 Oximetry ED Medical Decision Making - Medical Decision Making 51-year-old male who is well-known to this provider presents to the emergency room complaining of bilateral lower leg pain. This has been chronic in nature. He also complains of a sore to the right lateral side of his tongue. Patient states he has not eaten anything bad. He complains that his legs color is different. Patient suffers from peripheral neuropathy and is currently on gabapentin. Patient does have a primary care provider Dr. Dianna Mccray but has not seen him in a while. Patient denies any new trauma no shortness of breath no chest pain no nausea no vomiting. Patient is on the phone talking to his [id number] always trying to conduct an interview. Discussed with patient this is chronic that he needs to continue with his gabapentin can take Tylenol ibuprofen for pain and follow-up with his primary care provider Dr. Mccray. Critical care attestation.: If time is entered above; I have spent that time in minutes in the direct care of this critically ill patient, excluding procedure time. ED Disposition Clinical Impression: Chronic pain of lower extremity, bilateral Disposition: 01 HOME / SELF CARE / HOMELESS Is pt being admited?: No Does the pt Need Aspirin: No Condition: Stable Instructions: What You Need to Know About Chronic Back Pain Additional Instructions: No chronic lower leg complaint is best managed by your primary care provider. You need to continue with your pain medicine such as gabapentin and you can take Tylenol or ibuprofen. I recommend staying off your legs to get him a rest. Be sure to increase your fluid intake. Referrals: PRIMARY CARE, [Primary Care Provider] - 3-5 Days DIANNA MCCRAY JR, MD [Staff Physician] - 3-5 Days Time of Disposition: 06:18
== END 2022-01-07 06:31 | disposition home or self-care (01) ==
LOC: ED 02:07
DX: G89.29 Other chronic pain (principal); M79.605 Pain in left leg; M79.604 Pain in right leg; F31.9 Bipolar disorder, unspecified; E11.8 Type 2 diabetes mellitus with unspecified complications; Z88.5 Allergy status to narcotic agent; Z88.8 Allergy status to other drugs, medicaments and biological substances
CPT/HCPCS: 99283

== ENCOUNTER 2022-01-09 21:06 | Emergency (ER) | payer MEDICARE | END 2022-01-09 22:40 | disposition left against medical advice (07) | LOC: ED 21:06 | DX: R21 Rash and other nonspecific skin eruption (principal); Z53.21 Procedure and treatment not carried out due to patient leaving prior to being seen by health care provider ==